=== PATIENT | male | born 1980 | race Hispanic/Latino ===

== ENCOUNTER 2017-07-10 11:08 | Emergency (ER) | payer SELFPAY ==
[2017-07-10] MEDS ORDERED: NAPROSYN500 MG PO (13:00)
[2017-07-10 13:18] VITALS: BP 133/77
== END 2017-07-10 13:25 | disposition home or self-care (01) | DRG 605 ==
LOC: ED 11:08
DX: S20.212A Contusion of left front wall of thorax, initial encounter (principal); R00.1 Bradycardia, unspecified; V49.50XA Passenger injured in collision with unspecified motor vehicles in traffic accident, initial encounter; Y92.410 Unspecified street and highway as the place of occurrence of the external cause

== ENCOUNTER 2018-06-04 13:45 | Emergency (ER) | payer SELFPAY ==
[~2018-06-04] VITALS: Ht 170.2 cm; Wt 86.4 kg
[~2018-06-04 13:45] MED LIST: NAPROSYN500 MG PO
[2018-06-04] MEDS ORDERED: TORADOL PO (15:30)
[2018-06-04] MEDS ORDERED: MEDDOSEPAK PO (15:30)
[2018-06-04 15:33] VITALS: BP 123/84
== END 2018-06-04 15:40 | disposition home or self-care (01) | DRG 556 ==
LOC: ED 13:45
DX: M25.511 Pain in right shoulder (principal); M54.2 Cervicalgia; X50.0XXA Overexertion from strenuous movement or load, initial encounter; Y93.89 Activity, other specified; Y92.89 Other specified places as the place of occurrence of the external cause